=== PATIENT | male | born 1975 | race Hispanic/Latino ===

== ENCOUNTER 2018-02-13 11:24 | Emergency (ER) | payer OTHER ==
[2018-02-13 11:48] LABS: APPEARANCE,URINE Clear (CLEAR); BILIRUBIN,URINE Negative (NEGATIVE); COLOR,URINE Yellow (YELLOW); GLUCOSE, URINE (UA) Negative (NEGATIVE); KETONES,URINE Negative (NEGATIVE); LEUKOCYTE ESTERASE ,URINE Negative (NEGATIVE); NITRATE,URINE Negative (NEGATIVE); OCCULT BLOOD,URINE Negative (NEGATIVE); PH,URINE 6.5 (5.0-8.0); PROTEIN,URINE POS 1+ (NEGATIVE)
[2018-02-13 11:55] LABS: AMPHET/METH SCREEN,URINE NEGATIVE (NEGATIVE); BARBITURATE SCREEN, URINE NEGATIVE (NEGATIVE); BENZODIAZEPINES SCREEN,URINE NEGATIVE (NEGATIVE); CANNABINOID SCREEN,URINE NEGATIVE (NEGATIVE); COCAINE SCREEN,URINE NEGATIVE (NEGATIVE); OPIATE SCREEN,URINE NEGATIVE (NEGATIVE); PHENCYCLIDINE SCREEN,URINE NEGATIVE (NEGATIVE)
[2018-02-13 11:56] LABS: BASOPHILS % (AUTO) 0.5 % (0.0-5.0); EOSINOPHILS % (AUTO) 0.3 % (0.0-8.0); LYMPHOCYTES % (AUTO) 22.7 % (21.0-51.0); MEAN CORPUSCULAR HEMOGLOBIN 30.8 pg (27.0-33.0); MEAN CORPUSCULAR HGB CONC 34.8 g/dL (32.0-36.0); MEAN CORPUSCULAR VOLUME 88.4 fL (79-99); MONOCYTES % (AUTO) 6.1 % (3.0-13.0); NEUTROPHILS % (AUTO) 70.4 % (40.0-77.0); PLATELET COUNT (AUTO) 278 K/uL (130-400); RED BLOOD CELL COUNT(AUTO) 5.42 MIL/uL (4.50-6.20); RED CELL DISTRIBUTION WIDTH 13.8 % (11.0-15.5); WHITE BLOOD COUNT (AUTO) 6.5 K/uL (4.8-10.8)
[2018-02-13 11:57] LABS: BACTERIA,URINE Rare /HPF (None Seen); SQUAMOUS EPITHELIAL CELL,UR Rare /HPF (0-2); WBC,URINE 0-1 /HPF (0-1)
[2018-02-13] MEDS ORDERED: ASPIRIN 325 MG TABLET ONE (12:00)
[2018-02-13 12:12] LABS: CREATININE 1.1 mg/dL (0.5-1.5)
[2018-02-13 12:18] LABS: ALBUMIN 4.4 g/dL (3.5-5.0); BILIRUBIN,TOTAL 1.6 mg/dL (0.2-1.0); TOTAL PROTEIN, SERUM 8.2 g/dL (6.0-8.3)
== END 2018-02-13 16:16 | disposition home or self-care (01) ==
LOC: EDH 11:24
DX: R07.89 Other chest pain (principal); F41.9 Anxiety disorder, unspecified
CPT/HCPCS: 36415; 71045; 80053; 80305; 81001; 84484; 85025; 93005

== ENCOUNTER 2021-11-15 16:54 | Emergency (ER) | payer OTHER ==
[~2021-11-15] VITALS: Ht 172.7 cm; Wt 98.4 kg
[2021-11-15] MEDS ORDERED: ACETAMINOPHEN 500 MG TABLET PO ONE (18:00)
[2021-11-15] MEDS ORDERED: ACETAMINOPHEN 500 MG TABLET ONE (19:02)
[2021-11-15 19:50] VITALS: BP 130/70
[2021-11-15] MEDS ORDERED: ORPHENADRINE CITRATE 30 MG/ML ML IM ONE (20:00)
[2021-11-15] MEDS ORDERED: ORPHENADRINE CITRATE 30 MG/ML ML ONE (20:12)
[2021-11-15] MEDS ORDERED: CYCL10TA16 PO (20:22)
== END 2021-11-15 20:53 | disposition home or self-care (01) ==
LOC: EDH 16:54
DX: M54.2 Cervicalgia (principal); M54.50 Low back pain, unspecified; M25.532 Pain in left wrist; V47.9XXA Unspecified car occupant injured in collision with fixed or stationary object in traffic accident, initial encounter; Y93.89 Activity, other specified; Y92.89 Other specified places as the place of occurrence of the external cause; Y99.8 Other external cause status
CPT/HCPCS: 71045; 72100; 72125; 96372; 99284; J2360